=== PATIENT | male | born 1990 | race Asian ===

== ENCOUNTER 2023-05-21 04:57 | Emergency (ER) | payer BC ==
[~2023-05-21] VITALS: Ht 157.5 cm; Wt 54.8 kg
[2023-05-21 05:00] VITALS: TEMP 99.9
[2023-05-21] MEDS ORDERED: LEVO-65 PO (05:59)
[2023-05-21 07:26] VITALS: BP 97/63; PULSE 78; RESP 16; O2SAT 94
== END 2023-05-21 07:26 | disposition home or self-care (01) ==
LOC: ER 04:58
DX: J18.9 Pneumonia, unspecified organism (principal); Z20.822 Contact with and (suspected) exposure to COVID-19
CPT/HCPCS: 36415; 71045; 87502; 87503; 87811; 99284

== ENCOUNTER 2023-05-23 17:17 | Emergency (ER) | payer BC ==
[~2023-05-23] VITALS: Ht 157.5 cm; Wt 64.5 kg
[~2023-05-23 17:17] MED LIST: LEVO-65 PO
[2023-05-23 17:20] VITALS: BP 112/63; TEMP 98.6
[2023-05-23] MEDS ORDERED: dexamethasone sod phosphate 10mg/ml inj IV STA (19:19)
[2023-05-23] MEDS ORDERED: ipratropium/albuterol 3ml nebule NEB STA (19:19)
[2023-05-23] MEDS ORDERED: CefTRIAXone/D5W-Rocephin 1gm 50 ML IV ONE (19:20)
[2023-05-23] MEDS ORDERED: normal saline 1000ml 1,000 ML IV ONE (19:20)
[2023-05-23 21:38] VITALS: PULSE 66; RESP 20; O2SAT 96
[2023-05-23 21:45] VITALS: PULSE 73; RESP 18; O2SAT 99
[2023-05-23] MEDS ORDERED: ALBU18HF2 INH (22:06)
[2023-05-23] MEDS ORDERED: PRED20TA PO (22:06)
[2023-05-23 22:22] VITALS: RESP 18
== END 2023-05-23 22:27 | disposition home or self-care (01) ==
LOC: ER 17:18
DX: J18.9 Pneumonia, unspecified organism (principal); Z79.899 Other long term (current) drug therapy
CPT/HCPCS: 71045; 94640; 96365; 96366; 96375; 99284; J0696; J1100; J7030; 94760

== ENCOUNTER 2023-05-31 06:16 | Inpatient (IN) | payer BC ==
[~2023-05-31] VITALS: Ht 157.5 cm; Wt 52.3 kg
[~2023-05-31 06:16] MED LIST changes: +ALBU18HF2 INH
[2023-05-31] MEDS ORDERED: normal saline 1000ML IV soln IVB ONE ×3 (06:45)
[2023-05-31] MEDS ORDERED: ipratropium 0.5 MG/2.5ML nebule IH ONE (06:45)
[2023-05-31] MEDS ORDERED: acetaminophen 325mg tablet PO ONE (06:45)
[2023-05-31] MEDS ORDERED: methylPREDNISolone sod succ 125mg/2ml vial IV ONE (06:45)
[2023-05-31] MEDS ORDERED: albuterol 2.5 MG/3 ML nebule CONTNEB PRN (06:45)
[2023-05-31 07:32] VITALS: PULSE 98; RESP 22; O2SAT 92
[2023-05-31 09:58] LABS: BASOPHILS % (AUTO) 0.3 % (0-1); EOSINOPHILS % (AUTO) 0.2 % (0-6); HEMATOCRIT 30.4 % (42.0-52.0); HEMOGLOBIN 10.5 g/dl (14.0-17.9); LYMPHOCYTES # (AUTO) 2.1 X10'3 (1.1-4.8); LYMPHOCYTES % (AUTO) 27.3 % (21-51); MEAN CORPUSCULAR HEMOGLOBIN 30.8 PG (27.0-31.0); MEAN CORPUSCULAR HGB CONC 34.5 g/dL (33.0-36.5); MEAN CORPUSCULAR VOLUME 89.5 FL (78-98); MEAN PLATELET VOLUME 6.7 FL (7.4-10.4); MONOCYTES # (AUTO) 1.2 X10'3 (0-0.9); MONOCYTES % (AUTO) 14.8 % (2-12); NEUTROPHILS # (AUTO) 4.5 X10'3 (1.8-7.7); NEUTROPHILS % (AUTO) 57.4 % (42-75); PLATELET COUNT 370 X10'3 (140-440); RED CELL DISTRIBUTION WIDTH 12.8 % (11.5-14.5); WHITE BLOOD COUNT 7.8 X10'3 (4.5-11.0)
[2023-05-31 10:23] LABS: ALANINE AMINOTRANSFERASE 128 U/L (12-78); ALBUMIN 2.5 G/DL (3.4-5.0); ALBUMIN/GLOBULIN RATIO 0.5 (1.1-1.5); ALKALINE PHOSPHATASE 169 IU/L (46-116); ANION GAP 10 (8-16); ASPARTATE AMINO TRANSFERASE 84 U/L (10-37); BILIRUBIN,TOTAL 0.4 MG/DL (0.1-1.0); BLOOD UREA NITROGEN 13 MG/DL (7-18); BUN/CREATININE RATIO 13.8 (10.0-20.0); CALCIUM 7.6 MG/DL (8.5-10.1); CHLORIDE 104 MMOL/L (99-107); CREATININE 0.94 MG/DL (0.60-1.10); GLUCOSE 113 MG/DL (70-104); POTASSIUM 3.4 MMOL/L (3.5-5.1); SODIUM 137 MMOL/L (135-145); TOTAL CARBON DIOXIDE 22.9 MMOL/L (24-32); TOTAL PROTEIN 7.8 G/DL (6.4-8.2); eCRCL 82 ML/MIN; eGFR > 90 ML/MIN
[2023-05-31 11:17] LABS: BILIRUBIN,URINE NEGATIVE (Neg); CLARITY,URINE SLIGHTLY CLOUDY (Clear); COLOR,URINE YELLOW (Yellow); GLUCOSE, URINE NEGATIVE (Neg); KETONES,URINE TRACE mg/dl (Neg); LEUKOCYTE ESTERASE ,URINE NEGATIVE (Neg); NITRITES, URINE NEGATIVE (Neg); OCCULT BLOOD,URINE NEGATIVE (Neg); PROTEIN,URINE NEGATIVE (Neg); UROBILINOGEN,URINE 0.2 E.U/dL (0.2-1.0)
[2023-05-31 11:23] LABS: UA COLLECTION TYPE CLN CATCH MIDSTREAM
[2023-05-31 12:19] LABS: TRANSITIONAL EPI CELLS,URINE FEW /HPF
[2023-05-31 12:22] LABS: BACTERIA,URINE FEW /HPF (Neg); RBC,URINE 0-2 /HPF (0-2); SQUAMOUS EPITHELIAL CELL,UR FEW /LPF (FEW); WBC,URINE 0-4 /HPF (0-4)
[2023-05-31] MEDS ORDERED: HYDROcodone/acetaminophen 5mg/325mg tablet PO PRN (12:45)
[2023-05-31] MEDS ORDERED: mag hydrox/Alum hydrox/simeth 30ml oral suspension PO PRN (12:45)
[2023-05-31] MEDS ORDERED: potassium Cl 20 mEq SR tablet PO PRN (12:45)
[2023-05-31] MEDS ORDERED: magnesium 4gm in 100ml NS 100 ML IV PRN (12:45)
[2023-05-31] MEDS ORDERED: HYDROcodone/acetaminophen 10/325mg tab PO PRN (12:45)
[2023-05-31] MEDS ORDERED: ondansetron/PF 4mg/2ml inj IV PRN (12:45)
[2023-05-31] MEDS ORDERED: potassium Cl 40MEQ/1/2NS 520ml 520 ML IV PRN (12:45)
[2023-05-31] MEDS ORDERED: magnesium 2GM in 50ml NS 50 ML IV PRN (12:45)
[2023-05-31] MEDS ORDERED: acetaminophen 325mg tablet PO PRN (12:45)
[2023-05-31] MEDS ORDERED: magnesium Cl slow-release 64mg tablet PO PRN (12:45)
[2023-05-31] MEDS ORDERED: magnesium hydroxide 30ml (MOM) UD suspension PO PRN (12:45)
[2023-05-31] MEDS: dextrose 5%-1/2 normal saline 1,000 ML IV SCH (13:41)
[2023-05-31 14:10] LABS: MAGNESIUM 1.9 MG/DL (1.5-2.4)
[2023-05-31] MEDS ORDERED: ALBU18HF2 INH (14:51)
[2023-05-31] MEDS: methylPREDNISolone sod succ 125mg/2ml vial IV SCH (16:50)
[2023-05-31] MEDS: K and/or MAG REPLACEMENT MC SCH (19:46)
[2023-05-31] MEDS: docusate sod 100mg capsule PO SCH (20:01)
[2023-05-31] MEDS: potassium Cl 20 mEq SR tablet PO PRN (21:33)
[2023-06-01] MEDS: dextrose 5%-1/2 normal saline 1,000 ML IV SCH ×3 (00:45→14:06)
[2023-06-01] MEDS: methylPREDNISolone sod succ 125mg/2ml vial IV SCH ×3 (00:45→16:34)
[2023-06-01] MEDS: potassium Cl 20 mEq SR tablet PO PRN (04:36)
[2023-06-01 05:34] VITALS: BP 117/87; PULSE 78; RESP 16; TEMP 98.6; O2SAT 98
[2023-06-01 06:10] LABS: PROTHROMBIN TIME 10.9 SECONDS (9.0-12.0)
[2023-06-01 06:14] LABS: ALANINE AMINOTRANSFERASE 140 U/L (12-78); ALBUMIN 2.7 G/DL (3.4-5.0); ALBUMIN/GLOBULIN RATIO 0.5 (1.1-1.5); ALKALINE PHOSPHATASE 164 IU/L (46-116); AMYLASE 91 U/L (25-115); ANION GAP 8 (8-16); ASPARTATE AMINO TRANSFERASE 76 U/L (10-37); BILIRUBIN,TOTAL 0.4 MG/DL (0.1-1.0); BLOOD UREA NITROGEN 15 MG/DL (7-18); CALCIUM 8.5 MG/DL (8.5-10.1); CHLORIDE 103 MMOL/L (99-107); CREATININE 0.75 MG/DL (0.60-1.10); GLUCOSE 165 MG/DL (70-104); LIPASE 49 U/L (16-77); MAGNESIUM 2.4 MG/DL (1.5-2.4); PHOSPHORUS 2.8 MG/DL (2.3-4.5); POTASSIUM 4.5 MMOL/L (3.5-5.1); SODIUM 136 MMOL/L (135-145); TOTAL CARBON DIOXIDE 25.3 MMOL/L (24-32); TOTAL PROTEIN 8.7 G/DL (6.4-8.2); eCRCL 103 ML/MIN; eGFR > 90 ML/MIN
[2023-06-01 06:15] LABS: BASOPHILS % (AUTO) 0.1 % (0-1); EOSINOPHILS % (AUTO) 0 % (0-6); HEMATOCRIT 35.2 % (42.0-52.0); HEMOGLOBIN 11.9 g/dl (14.0-17.9); LYMPHOCYTES % (AUTO) 20.7 % (21-51); MEAN CORPUSCULAR HEMOGLOBIN 30.2 PG (27.0-31.0); MEAN CORPUSCULAR HGB CONC 33.7 g/dL (33.0-36.5); MEAN CORPUSCULAR VOLUME 89.6 FL (78-98); MONOCYTES # (AUTO) 0.4 X10'3 (0-0.9); MONOCYTES % (AUTO) 7.7 % (2-12); NEUTROPHILS # (AUTO) 3.5 X10'3 (1.8-7.7); NEUTROPHILS % (AUTO) 71.5 % (42-75); PLATELET COUNT 352 X10'3 (140-440); RED BLOOD COUNT 3.93 X10'6 (4.70-6.10); RED CELL DISTRIBUTION WIDTH 12.9 % (11.5-14.5); WHITE BLOOD COUNT 4.8 X10'3 (4.5-11.0)
[2023-06-01] MEDS: K and/or MAG REPLACEMENT MC SCH ×2 (06:48→19:53)
[2023-06-01] MEDS: enoxaparin 40mg/0.4ml syringe SUBCUT SCH (07:17)
[2023-06-01] MEDS: docusate sod 100mg capsule PO SCH ×2 (07:17→19:50)
[2023-06-01 10:00] VITALS: BP 105/65; PULSE 67; RESP 14; TEMP 97; O2SAT 96
[2023-06-01] MEDS: CefTRIAXone/D5W-Rocephin 1gm 50 ML IV SCH (16:34)
[2023-06-01 18:00] VITALS: BP 104/68; PULSE 60; RESP 18; TEMP 97.4; O2SAT 97
[2023-06-01 22:00] VITALS: BP 107/67; PULSE 64; RESP 16; TEMP 98.2; O2SAT 98
[2023-06-02] MEDS: dextrose 5%-1/2 normal saline 1,000 ML IV SCH ×2 (00:12→11:36)
[2023-06-02] MEDS: methylPREDNISolone sod succ 125mg/2ml vial IV SCH ×3 (00:13→15:33)
[2023-06-02 06:59] LABS: PROTHROMBIN TIME 10.3 SECONDS (9.0-12.0)
[2023-06-02 07:02] LABS: BASOPHILS % (AUTO) 0.1 % (0-1); EOSINOPHILS % (AUTO) 0 % (0-6); HEMOGLOBIN 11.8 g/dl (14.0-17.9); LYMPHOCYTES % (AUTO) 7.9 % (21-51); MEAN CORPUSCULAR HEMOGLOBIN 30.3 PG (27.0-31.0); MEAN CORPUSCULAR HGB CONC 33.7 g/dL (33.0-36.5); MEAN PLATELET VOLUME 7.1 FL (7.4-10.4); MONOCYTES # (AUTO) 0.4 X10'3 (0-0.9); MONOCYTES % (AUTO) 2.9 % (2-12); NEUTROPHILS % (AUTO) 89.1 % (42-75); PLATELET COUNT 374 X10'3 (140-440); RED BLOOD COUNT 3.89 X10'6 (4.70-6.10); RED CELL DISTRIBUTION WIDTH 12.7 % (11.5-14.5); WHITE BLOOD COUNT 12.4 X10'3 (4.5-11.0)
[2023-06-02 07:07] VITALS: BP 105/67; PULSE 71; RESP 18; TEMP 98.5; O2SAT 97
[2023-06-02 07:18] LABS: ALANINE AMINOTRANSFERASE 127 U/L (12-78); ALBUMIN 2.6 G/DL (3.4-5.0); ALBUMIN/GLOBULIN RATIO 0.4 (1.1-1.5); ALKALINE PHOSPHATASE 144 IU/L (46-116); AMYLASE 74 U/L (25-115); ANION GAP 7 (8-16); ASPARTATE AMINO TRANSFERASE 54 U/L (10-37); BILIRUBIN,TOTAL 0.2 MG/DL (0.1-1.0); BLOOD UREA NITROGEN 13 MG/DL (7-18); BUN/CREATININE RATIO 18.6 (10.0-20.0); CALCIUM 8.6 MG/DL (8.5-10.1); CHLORIDE 105 MMOL/L (99-107); GLUCOSE 172 MG/DL (70-104); LIPASE 45 U/L (16-77); MAGNESIUM 2.3 MG/DL (1.5-2.4); PHOSPHORUS 3.4 MG/DL (2.3-4.5); POTASSIUM 4.2 MMOL/L (3.5-5.1); SODIUM 140 MMOL/L (135-145); TOTAL CARBON DIOXIDE 28.1 MMOL/L (24-32); TOTAL PROTEIN 8.4 G/DL (6.4-8.2); eCRCL 110 ML/MIN; eGFR > 90 ML/MIN
[2023-06-02] MEDS: docusate sod 100mg capsule PO SCH (07:40)
[2023-06-02] MEDS: CefTRIAXone/D5W-Rocephin 1gm 50 ML IV SCH (07:40)
[2023-06-02] MEDS: K and/or MAG REPLACEMENT MC SCH (07:46)
[2023-06-02] MEDS: enoxaparin 40mg/0.4ml syringe SUBCUT SCH (07:48)
[2023-06-02 07:50] VITALS: RESP 16
[2023-06-02] MEDS ORDERED: azithromycin/NS 500mg/250ml 250 ML IV SCH (08:00)
[2023-06-02 10:42] VITALS: BP 95/55; PULSE 76; RESP 13; TEMP 97.3; O2SAT 97
[2023-06-02] MEDS ORDERED: LEVO-65 PO ×2 (15:55)
[2023-06-02] MEDS ORDERED: AMOX-419 PO (16:01)
[2023-06-05 13:49] LABS: HEPATITIS C VIRUS ANTIBODY Non Reactive (Non Reactive)
[2023-06-05 19:16] LABS: HBSAG SCREEN Negative (Negative)
== END 2023-06-02 17:07 | disposition home or self-care (01) | DRG 871 ==
LOC: ER 06:17 → ED HOLD 12:57 → ORTHO 4S 06-01 05:01
PROVIDERS: ADMIT Internal Medicine; ATTEND Internal Medicine
DX: A41.9 Sepsis, unspecified organism (principal); J18.9 Pneumonia, unspecified organism; J96.01 Acute respiratory failure with hypoxia; F10.10 Alcohol abuse, uncomplicated; Z20.822 Contact with and (suspected) exposure to COVID-19
CPT/HCPCS: 36415; 71045; 80053; 81001; 82150; 83605; 83690; 83735; 84100; 84145; 85025; 85610; 86803; 87040; 87081; 87340; 87502; 87503; 87522; 87811; 94640; 94760; 99285; A7015; G0378; J0456; J0696; J1650; J2930; J7030; J7040